=== PATIENT | female | born 1935 | race Caucasian/White ===

== ENCOUNTER 2016-10-04 10:19 | Outpatient (CLI) | payer MEDICARE, BC ==
[~2016-10-04] VITALS: Ht 165.1 cm; Wt 57.3 kg
[2016-10-04] MEDS ORDERED: PROBIOTIC1 EAC1 PO (10:55)
[2016-10-04] MEDS ORDERED: BAYER CHEWABLE81 MG PO (10:55)
[2016-10-04] MEDS ORDERED: MIRALAX17 GM PO (10:55)
[2016-10-04] MEDS ORDERED: NORVASC10 MG PO (10:55)
[2016-10-04] MEDS ORDERED: ESTRACE1 MG PO (10:56)
[2016-10-04] MEDS ORDERED: OYST-CAL-5001 TAB PO (10:56)
[2016-10-04] MEDS ORDERED: ZESTRIL40 MG PO (10:56)
[2016-10-04] MEDS ORDERED: INDERAL 40 MG T40 MG PO (10:57)
[2016-10-04] MEDS ORDERED: MULTIPLE VITAMI1 TA1 PO (10:57)
[2016-10-04] MEDS ORDERED: ULTRAM50 MG PO (10:57)
[2016-10-04] MEDS ORDERED: VITAMIN D31000 UNIT PO (10:58)
[2016-10-04 11:06] VITALS: BP 122/62; Ht 165.1 cm; Wt 57.3 kg
[2016-10-04 11:26] LABS: BASOPHILS 1.1 % (0-2); EOSINOPHILS 0.9 % (0-7); HEMATOCRIT 25.1 % (36.0-48.0); IMMATURE GRANULOCYTES 0.6 % (0-5); LYMPHOCYTES 44.7 % (15-50); MCH 30.1 pg (26.0-34.0); MCHC 31.9 g/dL (31.0-37.0); MCV 94.4 fL (80.0-100.0); MEAN PLATELET VOLUME 9.1 fL (7.4-10.4); MONOCYTES 13.4 % (2-11); NEUTROPHILS 39.3 % (40-80); PLATELET COUNT 382 10x3/uL (130-400); RBC 2.66 10x6/uL (4.00-5.40); RDW 12.8 % (11.5-14.5); WBC 6.5 10x3/uL (4.8-10.8)
--- NOTE | 2016-10-04 14:00 | NUR ---
1230- FIRST UNIT OF [facility] TRANSFUSING TO RIGHT ARM IV. GRAND DAUGHTER CONTINUES TO SIT AT BEDSIDE. LUNCH TRAY ORDERED. WATER OFFERED WELL. VSS. 1330- TRANSFUSION CONTINUES, PT TOLERATING. LUNCH COMPLETE. GR.DAUGHTER CONTINUES AT BEDSIDE. VSS. WILL CONTINUE TO MONITOR. 1345- REPORT GIVEN TO TAVON TAYLOR RN.
--- NOTE | 2016-10-04 17:30 | NUR ---
PATIENT LYING IN BED, DENIES COMPLAINTS, EXHIBITS NO SIGNS OR SYMPTOMS OF TRANSFUSION REACTION. RIGHT WRIST PIV DC'D WITH TIP INTACT. PATIENT GOES TO BATHROOM TO URINATE AND IS DISCHARGED BY WHEELCHAIR TO PRIVATE VEHICLE WITH GRANDDAUGHTER, WITH DISCHARGE INSTRUCTIONS IN HAND AT [id number]
== END 2016-10-04 17:38 | disposition home or self-care (01) ==
LOC: D.OPS 10:19
PROVIDERS: Family Medicine
DX: D64.9 Anemia, unspecified (principal)